=== PATIENT | male | born 1995 | race Two or more races ===

== ENCOUNTER 2019-05-05 20:51 | Emergency (ER) | payer SELFPAY ==
[~2019-05-05] VITALS: Ht 170.2 cm; Wt 81.6 kg
[2019-05-05 21:03] VITALS: BP 128/85
== END 2019-05-05 22:00 ==
LOC: ER 20:54
DX: S80.812A Abrasion, left lower leg, initial encounter (principal); W50.0XXA Accidental hit or strike by another person, initial encounter; Y93.02 Activity, running; Y92.89 Other specified places as the place of occurrence of the external cause; Y99.8 Other external cause status

== ENCOUNTER 2022-04-18 17:38 | Emergency (ER) | payer MEDICAID, OTHER ==
[~2022-04-18] VITALS: Ht 172.7 cm; Wt 82.0 kg
[2022-04-18 19:22] VITALS: BP 156/94
== END 2022-04-18 19:34 ==
LOC: ER 17:38
DX: Z04.1 Encounter for examination and observation following transport accident (principal); F17.210 Nicotine dependence, cigarettes, uncomplicated; V89.2XXA Person injured in unspecified motor-vehicle accident, traffic, initial encounter; Y93.89 Activity, other specified; Y92.89 Other specified places as the place of occurrence of the external cause; Y99.8 Other external cause status

== ENCOUNTER 2022-09-08 11:43 | Emergency (ER) | payer MEDICAID ==
[~2022-09-08] VITALS: Ht 172.7 cm; Wt 90.9 kg
[2022-09-08 11:46] VITALS: BP 143/98
[2022-09-08 12:16] LABS: Basophils # (auto) 0.1 10 ^3/uL (0-0.2); Eosinophils # (auto) 0.2 10 ^3/uL (0-0.8); Monocytes # (auto) 0.7 10 ^3/uL (0-1.3); Neutrophils % (auto) 44.6 % (37.0-80.0)
[2022-09-08 12:18] LABS: Basophils % (auto) 1.3 % (0.0-2.0); Eosinophils % (auto) 3.1 % (0.0-7.0); Hematocrit 52.1 % (41.0-53.0); Hemoglobin 17.8 g/dL (13.5-17.5); Lymphocytes # (auto) 3.3 10 ^3/uL (0.4-5.4); Lymphocytes % (auto) 42.4 % (10.0-50.0); Mean Corpuscular Hemoglobin 29.7 pg (28.0-32.0); Mean Corpuscular Hgb Conc. 34.1 g/dL (32.0-36.0); Monocytes % (auto) 8.6 % (0.0-12.0); Neutrophils # (auto) 3.5 10 ^3/uL (1.6-8.6); Nucleated Red Blood Cells % 0.2 %; Red Blood Cells 5.99 10^6/uL (4.5-5.90); Red Cell Distribution Width 13.4 % (11.8-14.3); White Blood Cell 7.8 10^3/uL (4.4-10.8)
[2022-09-08 12:32] LABS: INR 1.18 (0.9-1.15); Partial Thromboplastin Time 29.4 sec (24.6-33.4)
[2022-09-08 12:36] LABS: BUN/Creatinine Ratio 12.6; Potassium 4.2 mmol/L (3.5-5.1)
[2022-09-08 12:37] LABS: Albumin 4.1 g/dL (3.4-5.0); Calcium 9.6 mg/dL (8.5-10.1); Magnesium 2.1 mg/dL (1.6-2.6)
[2022-09-08 12:39] LABS: Bilirubin, Total 0.6 mg/dL (0.2-1.0); Total Protein 8.7 g/dL (6.4-8.2)
[2022-09-08 12:56] LABS: Urine Bacteria NONE SEEN /hpf (None Seen); Urine Blood Negative /uL (Negative); Urine Specific Gravity 1.014 (1.001-1.035); Urine WBC 1 /hpf (0 - 3)
[2022-09-08 13:00] LABS: Alcohol, Urine < 3.0 mg/dL (0-10); Amphetamine Screen, Urine POSITIVE (NEGATIVE); Barbiturate Scree,Urine NEGATIVE (NEGATIVE); Benzodiazephine Screen, Urine NEGATIVE (NEGATIVE); Cocaine Screen, Urine NEGATIVE (NEGATIVE)
[2022-09-08 13:08] LABS: Cannabinoid Screen, Urine POSITIVE (NEGATIVE); Opiate Scree,Urine NEGATIVE (NEGATIVE); Phencyclidine Screen, Urine NEGATIVE (NEGATIVE)
== END 2022-09-08 12:59 | disposition left against medical advice (07) ==
LOC: ER 11:43
DX: R07.89 Other chest pain (principal); Z53.21 Procedure and treatment not carried out due to patient leaving prior to being seen by health care provider
CPT/HCPCS: 36415; 71045; 80053; 80307; 81001; 83735; 83880; 84484; 85025; 85610; 85730; 93005